=== PATIENT | female | born 1960 | race Caucasian/White ===

== ENCOUNTER 2016-05-23 14:09 | Emergency (ER) ==
[2016-05-23 14:33] VITALS: BP 116/090
--- NOTE | 2016-05-23 15:46 | PROVIDER DOCUMENTATION ---
HPI-Headache - General Source: patient - History of Present Illness-Headache Headache Location: reports: global Quality of Pain: reports: throbbing Severity: reports: mild, moderate Onset/Duration: reports: gradual, 3 days ago Timing: reports: still present, constant Headache Context: reports: nothing Headache History: reports: occasional headaches, history of migraines Any recent trauma/injury?: reports: none Headache severity at the maximum: moderate Headache Exacerbated by:: reports: nothing Modifying Factors: improves with: nothing Associated Symptoms: reports: headache, nausea. denies: fainting, dizziness, chest pain, muscle spasms, seizures, sleepy, slurred speech, vomiting, vision changes, other Similar Symptoms Previously?: Yes Recently seen or treated by another doctor?: No <Erick Navarro - Last Filed: 05/23/16 15:43> <[address] - Last Filed: 05/23/16 16:17> - General Chief Complaint: Headache Stated Complaint: FLU LIKE SX Time Seen by Provider: 05/23/16 15:26 Allergies/Adverse Reactions: Patient Allergies Allergy/AdvReac Type Severity Reaction Status Date / Time No Known Allergies Allergy Verified 05/23/16 14:33 Home Medications: Home Medication List Medication Instructions Recorded Confirmed Last Taken Type Meloxicam [Mobic] 7.5 mg PO DAILY PRN PRN #15 tablet 05/23/16 Unknown Rx - History of Present Illness-Headache Nature of Presenting Problem: pt is a 55 y/o F that presents with headache with nausea x 3 days and chronic hip pain that is worse today. pt want's to be checked for f/u due to grandson having vomit. pt has no cough/congestion, fever chills (Erick Navarro) Review of Systems - Adult - REVIEW OF SYSTEMS - ADULT Constitutional: denies: chills, fever Eyes: denies: decreased vision, blurred vision, double vision Ears, Nose, Mouth & Throat: denies: ear pain, sinus problem, throat pain, throat swelling Cardiovascular: denies: edema, palpitations, syncope Respiratory: denies: cough, shortness of breath, wheezing Gastrointestinal: reports: nausea. denies: abdominal pain, diarrhea, vomiting Genitourinary: reports: no symptoms reported Musculoskeletal: reports: joint pain. denies: back pain, muscle weakness Integumentary: reports: no symptoms reported Neurological: reports: headache/migraines. denies: dizziness/vertigo, seizure Psychiatric: reports: no symptoms reported Endocrine: reports: no symptoms reported Hematologic/Lymphatic: reports: no symptoms reported Allergic/Immunologic: reports: no symptoms reported All Other Systems: Reviewed and Negative <Erick Navarro - Last Filed: 05/23/16 15:43> Past History - Adult - PAST MEDICAL HISTORY-ADULT Review of Records: reports: Nursing Assessment Review, Medications Reviewed Major Childhood Illnesses: reports: denies history Cardiovascular: reports: denies history Respiratory: reports: denies history Gastrointestinal: reports: denies history Obstetrical/Gynecological: reports: denies history Genitourinary: reports: denies history Musculoskeletal: reports: orthopedic injury (left wrist) Neurological: reports: headaches/migraines Psychiatric: reports: denies history Endocrine/Immune: reports: denies history - PRIOR SURGERIES/PROCEDURES Surgical/Procedure History: reports: orthopedic (extremity) (left wirst) - FAMILY HISTORY Family History: reviewed, not pertinent - SOCIAL HISTORY Smoking: non-smoker Alcohol Use Frequency: occasionally Living Situation: family <Erick Navarro - Last Filed: 05/23/16 15:43> Physical Exam- Neurological - Physical Exam-Neuro Initial Vital Signs Reviewed: Yes General Appearance: alert, no apparent distress Eye Exam: bilateral eye: normal inspection, PERRL HENMT: normocephalic/atraumatic, moist mucous membranes, normal ENT inspection Head Injury: no evidence of injury. negative: ecchymosis Neck: full range of motion, normal inspection Respiratory: lungs clear, normal breath sounds, no respiratory distress, no accessory muscle use Cardiovascular: regular rate, rhythm, no edema, no murmur Abdominal Exam: normal bowel sounds, non tender, soft Extremity: normal range of motion, normal inspection art instructor Exam: normal hearing, normal speech, PERRL Motor/Sensory: no motor deficit, no sensory deficit Neurologic: art instructor II-XII nml as tested, no motor/sensory deficits Integumentary: normal color, warm/dry Psych/Mental Status: normal mood/affect, normal thought content, normal thought process, oriented x 3 - Glascow Coma Scale Best Eye Response: (4) open spontaneously Best Verbal Response: (5) oriented Best Motor Response: (6) obeys commands Total Glascow Score: 15 <Erick Navarro - Last Filed: 05/23/16 15:43> Progress <Erick Navarro - Last Filed: 05/23/16 15:43> <[address] - Last Filed: 05/23/16 16:17> - PLAN OF CARE/RESULTS Progress/Plan/Lab Results: Orders Category Date Time Status INFLUENZA SCREEN PL Stat Lab 05/23/16 15:36 Uncollected Vital Signs Temp Pulse Resp BP Pulse Ox 05/23/16 14:30 98.2 F 86 20 116/090 100 No Known Allergies Allergy (Verified 05/23/16 14:33) No Home Medications 05/23/16 ([address]) Departure <Erick Navarro - Last Filed: 05/23/16 15:43> - Departure Time of Disposition Order: 16:15 Certified Medical Emergency: Emergent <[address]ro [address] - Last Filed: 05/23/16 16:17> - Departure DIAGNOSIS: Cold, Chronic right hip pain Disposition: HOME 01 Condition: Good Additional Instructions: Take medication as prescribed. Follow up with your primary care provider. ED Follow Up Instructions: You have been treated by a care provider in the Emergency Department. These instructions are being provided to you so you can have an understanding of how to care for yourself upon discharge. Upon discharge from the Emergency Department, you are responsible for making arrangements for follow-up care by a physician of your choice. Take all prescribed medications as directed. Return to the Emergency Department immediately for any new or worsening symptoms. You may call the Physician Referral phone number at [phone] to obtain a list of Physicians who are taking new patients. Prescriptions: Meloxicam [Mobic] 7.5 mg PO DAILY PRN PRN #15 tablet PRN Reason: Pain Attestation - Scribe Verification/Attestation Scribe:: Erick Navarro Acting as Scribe for:: Sandro [address] Scribe documention review:: This chart was documented by a scribe and accurately reflects the service the provider performed and the decisions made by the provider. - Physician/ DESTINEY Attestation Patient care was provided by Advanced Practice Provider:: Yes Advanced Practice Provider:: Sandro Way Advanced Practice Provider documentation review:: The Mid-level provider documentation, treatment plan and medical decision making was reviewed by the physician who agrees with all treatment and medical decision making by the MLP. <Erick Navarro - Last Filed: 05/23/16 15:43> - Physician/ DESTINEY Attestation Patient care was provided by Advanced Practice Provider:: Yes Advanced Practice Provider:: Sandro [address] Advanced Practice Provider documentation review:: The Mid-level provider documentation, treatment plan and medical decision making was reviewed by the physician who agrees with all treatment and medical decision making by the MLP. <[address]ro Way - Last Filed: 05/23/16 16:17> Physician Attestation - Physician Attestation I, the provider, attest to the following statement:: Sandro [address] Physician documentation Attestation:: This documentation recorded by the scribe accurately reflects the service I personally performed and the decisions made by me. <Erick Navarro - Last Filed: 05/23/16 15:43>
[2016-05-23] MEDS ORDERED: DECADRON IM ONE (16:17)
== END 2016-05-23 16:34 | disposition home or self-care (01) ==
LOC: P.ED 14:09
DX: J00 Acute nasopharyngitis [common cold] (principal); G89.29 Other chronic pain; M25.551 Pain in right hip; R51 Headache; R11.0 Nausea
CPT/HCPCS: 87804; 96372